=== PATIENT | male | born 1975 ===

== ENCOUNTER 2023-03-13 09:39 | Outpatient (CLI) | payer MEDICAID, SELFPAY ==
--- NOTE | 2023-03-13 09:45 | FL_ITS ---
WS: [id number] EXAMINATION: [place] barium swallow [id number] REASON FOR EXAM: DYSPHAGIA ORDER DATE: 03/13/2023 9:52 AM COMPARISON: None available. TECHNIQUE: The patient was able to swallow thick barium for the esophagram. Cine-fluoroscopy with rapid sequence imaging was obtained while the patient swallowed. The patient was also placed supine and in various recumbent positions during the exam. FINDINGS: There was a normal mucosal fold pattern in the upper esophagus. There is no sign of diverticula, webs or stricture. There was a mild delay in contrast emptying from the pharyngeal esophagus. There was n o sliding hiatal hernia. With provocative maneuvers no gastroesophageal reflux was initiated. The dis carlo esophageal mucosal pattern is unremarkable. IMPRESSION: 1 , MILD CONTRAST RETENTION DUE TO COATING IN THE PHARYNGEAL SECTION. 2. NO HIATAL HERNIA OR GASTROESOPHAGEAL REFLUX. FLUOROSCOPY TIME: 1min [id number] # OF SPOT FILMS:
== END 2023-03-13 09:40 | disposition home or self-care (01) ==
PROVIDERS: PCP Nurse Practitioner Family; Visit Provider Specialist
DX: R13.10 Dysphagia, unspecified (principal)
CPT/HCPCS: 74220

== ENCOUNTER 2023-03-21 10:10 | Outpatient (CLI) | payer MEDICAID, SELFPAY ==
--- NOTE | 2023-03-21 10:20 | CT_ITS ---
WS: [id number] CT NECK WITH CONTRAST HISTORY: DYSPHAGIA TECHNIQUE: Contiguous 2 mm axial images are performed through the neck with intravenous contrast. Sag ittal and coronal reformats are also submitted. All CT scans at [facility] use at least one o f these dose optimization techniques: automated exposure control; mA and/or kV adjustment per patient size (includes targeted exams where dose is matched to clinical indication); or iterative reconstruc tion. CONTRAST: CONTRAST: Omnipaque 350; 100 mL IV. DLP: 218.98 mGy.cm COMPARISON: None available. Nasopharynx, oropharynx, hypopharynx and larynx are unremarkable. No soft tissue masses or abnormal e nhancement. Torus tubarius and fossa of Rosenmuller and parapharyngeal fat are normal. Small bilateral cervical chain lymph nodes. No enlarged or necrotic lymph nodes. LEFT thyroidectomy. Normal-appearing RIGHT thyroid. Normal enhancement of the parotid glands. Normal submandibular glands. No osseous abnormalities. Visualized portions of the skull base demonstrate no abnormalities. Orbits and globes are within norm al limits. No soft tissue masses. Visualized paranasal sinuses and mastoid air cells are normal. Lung apices are clear. IMPRESSION: 1. No neck mass. No glottic or subglottic mass or narrowing. 2. No cervical chain lymphadenopathy. 3. No laryngeal stricture. 4. Prior LEFT thyroidectomy.
[2023-03-21] MEDS: iohexol 350 mg/mL 500 mL Btl (per mL) IV (10:43)
== END 2023-03-21 10:11 | disposition home or self-care (01) ==
LOC: RAD 10:12
PROVIDERS: PCP Nurse Practitioner Family; Visit Provider Nurse Practitioner Family
DX: R13.10 Dysphagia, unspecified (principal); E89.0 Postprocedural hypothyroidism
CPT/HCPCS: 70491; Q9967

== ENCOUNTER 2023-04-23 10:29 | Outpatient (CLI) | payer MEDICAID, SELFPAY ==
--- NOTE | 2023-04-23 10:37 | FL_ITS ---
WS: [id number] EXAMINATION: FL barium swallow modifd [id number] REASON FOR EXAM: Pharyngoesoph. dysphagia ORDER DATE: 04/23/2023 10:48 AM FLUOROSCOPY TIME: 1min [id number] # OF SPOT FILMS: 0 TECHNIQUE: The oral cavity and upper pharyngeal and laryngeal region were observed in the lateral pro jection with fluoroscopy during swallowing. Different consistencies of liquid and food were mixed with barium and administered by the speech path ologist during fluoroscopy. FINDINGS: The oral stage was unremarkable with satisfactory initiation of the swallowing reflex. Mov ement of contrast coated material through the pharynx into the upper esophagus was observed. Please r efer to speech pathologist report for specific details regarding swallowing function. There was no si gnificant residual. IMPRESSION: PLEASE REFER TO THE SPEECH PATHOLOGIST REPORT FOR ADDITIONAL DETAILS REGARDING THIS MODIFIED BARIUM S WALLOW STUDY.
== END 2023-04-23 10:30 | disposition home or self-care (01) ==
PROVIDERS: PCP Nurse Practitioner Family; Visit Provider Otolaryngology
DX: R13.14 Dysphagia, pharyngoesophageal phase (principal)
CPT/HCPCS: 74230; 92611